=== PATIENT | female | born 1975 | race Caucasian/White ===

== ENCOUNTER 2018-01-03 01:40 | Inpatient (IN) | payer OTHER ==
[~2018-01-03] VITALS: Ht 157.5 cm; Wt 72.6 kg
[2018-01-03] MEDS ORDERED: PREN1SGL25 PO (02:46)
[2018-01-03] MEDS ORDERED: LACTATED RINGERS 1,000 ML IV SCH (02:46)
[2018-01-03] MEDS ORDERED: NALBUPHINE HYDROCHLORIDE 10 MG/ML VIAL IVP PRN (02:50)
[2018-01-03] MEDS ORDERED: OXYTOCIN 10 UNITS/ML VIAL IM SCH (02:50)
[2018-01-03] MEDS ORDERED: PROMETHAZINE 25 MG/ML VIAL IVP PRN (02:50)
[2018-01-03] MEDS ORDERED: CARBOPROST 250 MCG/ML AMP IM PRN (02:50)
[2018-01-03] MEDS ORDERED: METHYLERGONOVINE 0.2 MG/ML AMP IM PRN ×2 (02:50→04:35)
[2018-01-03 02:55] VITALS: BP 131/77
[2018-01-03 03:22] LABS: BASOPHILS % (AUTO) 0.5 % (0.0-2.0); EOSINOPHILS # (AUTO) 0.1 K/uL (0-0.4); EOSINOPHILS % (AUTO) 0.9 % (0.0-4.0); HEMATOCRIT 37.6 % (36-48); HEMOGLOBIN 12.2 g/dL (12.0-16.0); LYMPHOCYTES % (AUTO) 24.1 % (20.5-51.1); MEAN CORPUSCULAR HEMOGLOBIN 25 pg (27-31); MEAN CORPUSCULAR HGB CONC 33 g/dL (33-37); MEAN CORPUSCULAR VOLUME 78 fL (80-94); MONOCYTES # (AUTO) 0.7 K/uL (0.8-1.0); MONOCYTES % (AUTO) 8.3 % (1.7-9.3); NEUTROPHILS # (AUTO) 5.5 K/uL (1.8-7.7); NEUTROPHILS % (AUTO) 66.2 % (42.2-75.2); PLATELET COUNT (AUTO) 235 K/uL (140-450); RED BLOOD CELL COUNT(AUTO) 4.84 MIL/uL (4.20-5.40); RED CELL DISTRIBUTION WIDTH 15.3 % (11.6-13.7); WHITE BLOOD COUNT (AUTO) 8.3 K/uL (4.8-10.8)
[2018-01-03 03:29] LABS: ANION GAP 12.4 (8-16); CARBON DIOXIDE 22.5 mmol/L (21-32); CREATININE 0.6 mg/dL (0.6-1.3); POTASSIUM 3.9 mmol/L (3.5-5.1)
[2018-01-03 03:33] LABS: APPEARANCE,URINE HAZY (CLEAR); BARBITURATE, URINE NEG. ng/ml (NEG <=200); BENZODIAZEPINE, URINE NEG. ng/mL (NEG <=200); BILIRUBIN,URINE NEGATIVE (NEGATIVE); BLOOD, URINE 3+ (NEGATIVE); CANNABINOID, URINE NEG. ng/mL (NEG <=50); COCAINE, URINE NEG. ng/mL (NEG <=300); COLOR,URINE YELLOW (YELLOW); LEUKOCYTE ESTERASE ,URINE NEGATIVE (NEGATIVE); NITRITE, URINE NEGATIVE (NEGATIVE); OPIATE, URINE NEG. ng/mL (NEG <=2000); PHENCYCLIDINE SCREEN,URINE NEG. ng/mL (NEG <=25); UGLUCOSE NEGATIVE (NEGATIVE)
[2018-01-03 03:34] LABS: ALBUMIN 2.8 g/dL (3.4-5.0); TOTAL BILIRUBIN 0.2 mg/dL (0.0-1.0)
[2018-01-03] MEDS ORDERED: IBUPROFEN 800 MG TAB PO PRN (04:35)
[2018-01-03] MEDS ORDERED: TEMAZEPAM 15 MG CAP PO PRN (04:35)
[2018-01-03] MEDS ORDERED: MEASLES, MUMPS, AND RUBELLA 1 VIAL SQVAC PRN (04:35)
[2018-01-03] MEDS ORDERED: OXYTOCIN 10 UNITS/ML VIAL IM PRN (04:35)
[2018-01-03] MEDS ORDERED: BENZOCAINE/MENTHOL 20%-0.5% 60 GM CAN TP PRN (04:35)
[2018-01-03] MEDS ORDERED: HYDROcodone/APAP 5/325 MG 1 TAB TAB PO PRN (04:35)
[2018-01-03] MEDS ORDERED: oxyCODONE/APAP 5/325 MG 1 TAB TAB PO PRN (04:35)
[2018-01-03 05:19] LABS: RBC,URINE 0-5 (RARE) /HPF (0-5)
[2018-01-03 05:20] LABS: WBC,URINE 20-60 /HPF (0-5)
--- NOTE | 2018-01-03 09:08 | NUR ---
PATIENT HAS BEEN SCREENED AND CATEGORIZED LOW NUTRITION RISK. PATIENT WILL BE SEEN WITHIN 7 DAYS OF ADMISSION. 01/09/[address]
[2018-01-03] MEDS ORDERED: DOCUSATE SOD/SENNA 50/8.6 MG 1 TAB PO SCH (21:00)
[2018-01-04 06:57] LABS: HEMATOCRIT 34.6 % (36-48); HEMOGLOBIN 11.5 g/dL (12.0-16.0)
--- NOTE | 2018-01-04 16:00 | NUR ---
I met with patient and baby's father to discuss, and provide resources for mother. Patient stated that they have conflict and the father is upset with her and wanted to see a perinatal social worker to see how can they resolve their conflict in a peaceful manner. Baby's Father [place] stated that they had been off and on for about 2 months; he continue explaining that he was really upset mainly because he just learned that patient had the baby yesterday and he was not call or informed by mother until this morning. He was more frustrated to realize he had missed the of his first son and that patient did not name the name they had agreed on for the baby on the certificate. Patient admitted to making that decision based on fear for the father to attempt to take the baby away from her as he has told her in the past. I explained to both my role as a medical customer service representative and provided resources for both. I explained to both that it is not my scope of practice to give any advice or legal advice to neither of them both verbalized understanding and agreed to take the resources. I also explained to father that it is up to patient to have him visit with baby and allowed him to stay. Both agreed to make the visit a pleasant one, and for the father to work a plan with mother to stay and help patient with the baby. Patient then stated that she was tired and needed to distress and take a shower, and for no particular reason father began to argue with patient about the babies name. I stop the exchange and patient asked the father to leave and not stay because both clearly were not able interact with-out conflict. Father got upset told Patient that he was going to court and will make sure to fight for his rights to see his baby. He thank me for my assistance and left. Patient was upset and began to cry stating " We can never agreed on anything and always argue" I Validated her feelings of frustration and suggest for her to take a shower, rest and care for the baby. She was calm thank me for my assistance and support and I dismissed myself.
== END 2018-01-05 20:40 | disposition home or self-care (01) | DRG 560 ==
LOC: MLD 01:40 → MFCC 07:28
PROVIDERS: ADMIT Obstetrics & Gynecology; ATTEND Obstetrics & Gynecology
PROC: 10E0XZZ Delivery of Products of Conception, External Approach (ICD-10-PCS; principal; 2018-01-02)
PROC: 0KQM0ZZ Repair Perineum Muscle, Open Approach (ICD-10-PCS; 2018-01-02)
PROC: 10907ZC Drainage of Amniotic Fluid, Therapeutic from Products of Conception, Via Natural or Artificial Opening (ICD-10-PCS; 2018-01-02)
DX: O70.0 First degree perineal laceration during delivery (principal); O89.4 Spinal and epidural anesthesia-induced headache during the puerperium; Z37.0 Single live birth; Z3A.39 39 weeks gestation of pregnancy
CPT/HCPCS: 36415; 59409; 80053; 80305; 81001; 82947; 82948; 85018; 85025; 86592; 86886; 86900; 86901; 87086; J7120